=== PATIENT | female | born 1950 | race Caucasian/White ===

== ENCOUNTER → 2017-05-10 | Outpatient (CLI) | payer OTHER ==
--- NOTE | 2017-05-11 10:01 | RSPPFT ---
DATE OF PROCEDURE: 05/10/17 COMMENTS: Spirometry with FVC of 2.4 predicted 2.5, FEV1 of 1.2 predicted 2.0, FEV1/FVC ratio 50% predicted 83%. Post-bronchodilator FVC increases to 2.7 and FEV1 to 1.4. Lung volumes indicate air trapping with RV at 2.3 predicted 1.9. DLCO is 53% of predicted. IMPRESSION: On the basis of the above, patient has a moderate obstructive lung defect with responsiveness to acutely inhaled bronchodilator and mild air trapping.
== END ==
LOC: HRSP 10:18
PROVIDERS: ATTEND Family Medicine
DX: J44.9 Chronic obstructive pulmonary disease, unspecified (principal)
CPT/HCPCS: 94060; 94726; 94729